=== PATIENT | male | born 1940 ===

== ENCOUNTER 2016-12-09 11:59 | Emergency (ER) | payer MEDICARE, OTHER ==
[2016-12-09 12:21] VITALS: TEMP 97.9
[2016-12-09] MEDS ORDERED: Dexamethasone 4 mg/1 ml IM STA (12:50)
[2016-12-09] MEDS ORDERED: Dexamethasone 4 mg/1 ml ONE ×2 (12:59→13:00)
--- NOTE | 2016-12-09 13:41 | C.PDOC ---
Time Seen by Provider: 12/09/16 12:12 Chief Complaint (Nursing): Upper Extremity Problem/Injury Past Medical History Vital Signs: Last Vital Signs Temp 97.9 F 12/09/16 12:03 Pulse 63 12/09/16 12:03 Resp 16 12/09/16 12:03 BP 169/77 H 12/09/16 12:03 Pulse Ox 100 12/09/16 12:03 - Social History Hx Alcohol Use: No Hx Substance Use: No - Immunization History Hx Tetanus Toxoid Vaccination: No Hx Influenza Vaccination: No Hx Pneumococcal Vaccination: No ED Course And Treatment O2 Sat by Pulse Oximetry: 100 Disposition - Disposition Disposition: HOME/ ROUTINE Disposition Time: 13:40 Condition: GOOD Forms: [facility] (Beninese)
--- NOTE | 2016-12-09 13:43 | C.PDOC ---
History Of Present Illness 76 yr old male with PMHx of cervical herniated disc, presents to the ER with complaints of pain to the right side of neck, radiating to the right arm and associated with paresthesia in the fingers. Patient denies vision changes, headache, weakness or numbness. Time Seen by Provider: 12/09/16 12:12 Chief Complaint (Nursing): Upper Extremity Problem/Injury History Per: Patient History/Exam Limitations: no limitations Onset/Duration Of Symptoms: Days (1 week) Past Medical History Reviewed: Historical Data, Nursing Documentation, Vital Signs Vital Signs: Last Vital Signs Temp 97.9 F 12/09/16 12:03 Pulse 68 12/09/16 13:52 Resp 18 12/09/16 13:52 BP 157/91 H 12/09/16 13:52 Pulse Ox 97 12/09/16 13:52 - Medical History PMH: No Chronic Diseases Family History: States: No Known Family Hx - Social History Hx Alcohol Use: No Hx Substance Use: No - Immunization History Hx Tetanus Toxoid Vaccination: No Hx Influenza Vaccination: No Hx Pneumococcal Vaccination: No Review Of Systems Except As Marked, All Systems Reviewed And Found Negative. Eyes: Negative for: Vision Change Musculoskeletal: Positive for: Neck Pain (right side), Arm Pain (radiating pain to the right arm) Neurological: Negative for: Weakness, Numbness, Headache Physical Exam - Physical Exam Appears: Non-toxic, No Acute Distress Skin: Warm, Dry, No Rash Head: Atraumatic, Normacephalic Eye(s): bilateral: Normal Inspection, PERRL, EOMI Oral Mucosa: Moist Neck: Normal, Normal ROM, No Step Off Deformity, Supple Chest: Symmetrical, No Tenderness Cardiovascular: Rhythm Regular, No Murmur Respiratory: Normal Breath Sounds, No Rales, No Rhonchi, No Stridor, No Wheezing Back: Normal Inspection, No CVA Tenderness Extremity: Normal ROM, No Swelling Pulses: Left Radial: Normal, Right Radial: Normal Neurological/Psych: Oriented x3, Normal Speech, Normal Motor Gait: Steady ED Course And Treatment O2 Sat by Pulse Oximetry: 100 (RA) Pulse Ox Interpretation: Normal Medical Decision Making Medical Decision Making: PLAN: * Flexeril PO * Decadron IM * Tordol IM On re-exam, the patient reports improvement of symptoms. Lungs are CTA, heart is RRR, abdomen is soft, non-tender and tolerating PO well. Ambulatory in the ED steady. Disposition - Disposition Referrals: Gee Scott MD [Medical Doctor] - Disposition: HOME/ ROUTINE Disposition Time: 13:40 Condition: GOOD Additional Instructions: Follow up with the medical doctor/clinic within 1-2 days. Return if worsened. Prescriptions: Acetaminophen [Tylenol] 325 mg PO Q6 PRN #30 tab PRN Reason: Pain, Mild (1-3) Diazepam [Valium] 2 mg PO TID #21 tab traMADol [Ultram] 50 mg PO Q6 PRN #15 tab PRN Reason: Pain Instructions: Acute Low Back Pain (ED) Forms: [employer] (Kiswahili) Print Language: KOSOVAN - Clinical Impression Clinical Impression: Cervical radiculopathy - PA / JIG BORER / Resident Statement MD/DO has reviewed & agrees with the documentation as recorded. - Scribe Statement The provider has reviewed the documentation as recorded by the Scribe Roya Blanc All medical record entries made by the Scribe were at my direction and personally dictated by me. I have reviewed the chart and agree that the record accurately reflects my personal performance of the history, physical exam, medical decision making, and the department course for this patient. I have also personally directed, reviewed, and agree with the discharge instructions and disposition.
[2016-12-09 13:53] VITALS: BP 157/91; PULSE 68; RESP 18
[2016-12-12 08:08] VITALS: O2SAT 100
== END 2016-12-09 13:53 | disposition home or self-care (01) ==
LOC: C.ER 11:59
DX: M54.12 Radiculopathy, cervical region (principal)
CPT/HCPCS: 96372; 99284; J1100; J1885